=== PATIENT | male | born 1980 | race Caucasian/White ===

== ENCOUNTER 2023-12-05 13:34 | Emergency (ER) | payer SELFPAY ==
--- NOTE | 2023-12-05 13:35 | ECG_ITS ---
[facility] Test Date: 2023-12-05 Pat Name: Jeffy Iraheta Department: Room: Gender: Male Cash Clerk: : 1980 Requested By: Aletha Whitney Order Number: [id number] Moraima MD: Charlie Ramires M.D. Measurements Intervals [place] Rate: 61 P: 82 DE: 147 QRS: 53 QRSD: 121 T: 102 QT: 356 QTc: 360 Interpretive Statements SINUS RHYTHM POSSIBLE RIGHT VENTRICULAR CONDUCTION DELAY [RSR (QR) IN V1/V2] Compared to ECG 05/13/2017 10:14:39 Myocardial infarct finding no longer present Electronically Signed On 12-05-2023 18:03:35 TAR DISTRIBUTOR OPERATOR by Charlie Ramires M.D. [id number]
[2023-12-05 13:41] VITALS: BP 123/85; PULSE 66; RESP 16; TEMP 36.4; O2SAT 98; BMI 32.9
--- NOTE | 2023-12-05 13:48 | XRR_ITS ---
PROCEDURE INFORMATION: Exam: XR Chest Exam date and time: 12/05/2023 2:25 PM Age: 43 years old Clinical indication: Pain; Chest pressure; Additional info: Chest pain TECHNIQUE: Imaging protocol: Radiologic exam of the chest. Views: 1 view. COMPARISON: CR XR chest 1V [id number] 05/13/2017 10:09 AM FINDINGS: Lungs: Unchanged hyperinflation/COPD. No consolidation. Unchanged calcified granuloma mid left lung. Pulmonary vascularity is within normal limits. Pleural spaces: Unremarkable. No pleural effusion. No pneumothorax. Heart/Mediastinum: Unremarkable. No cardiomegaly. Bones/joints: No acute abnormality. XR/XR chest 1V portable [id number] IMPRESSION: No acute findings.
--- NOTE | 2023-12-05 13:48 | W.ED.CHESTPA ---
HPI - Chest Pain General: Chief Complaint: Chest Pain Stated Complaint: chest pain Time Seen by Provider: 12/05/23 13:48 Source: patient Mode of arrival: ambulatory Limitations: no limitations History of Present Illness: Patient is a very nice 43-year-old male who presents to ED today after he was referred here by Dr. Reis at the walk-in clinic for further evaluation of chest pain. Patient tells me over the past 1.5 weeks he has had intermittent episodes of left-sided chest pains. He describes them as sharp and usually only lasting a few seconds before subsiding on their own. He states the longest episode lasted a few minutes. He will usually get about 10 or so a day. There is no worsening or alleviating factors to his discomfort. He has absolutely no other symptoms. It is not affected by exertion or position. He has no complaints of shortness of breath or difficulty breathing. Patient admittedly does not have a primary care doctor and does not receive routine medical care. He reports a family history of cardiac disease. MD complaint: chest pain Onset (ago): day(s) (about 10 days or so) Timing of current episode: episodic Onset: during rest Pain location: left chest Pain radiation: none Severity: moderate Quality: aching and sharp Relieving factors: nothing Exacerbating factors: nothing Associated symptoms: Deny abdominal pain, dyspnea, fever(s), nausea, palpitations, syncope or vomiting Treatment prior to arrival: none Risk Factors: Thoracic aortic dissection risk factors: none Review of Systems Const: Denies: fever(s), chills, body aches, fatigue or malaise Eyes: Denies: change in vision or blurry vision Card: Reports: chest pain; Denies: palpitations, irregular heart rhythm, edema, swelling of feet/ankles, lightheadedness, syncope, pre-syncope, dyspnea on exertion, orthopnea, leg pain with exertion or acrocyanosis Resp: Denies: dyspnea, productive cough, non-productive cough, wheezing, pain on inspiration, hemoptysis or chest congestion GI: Denies: abdominal pain, nausea, vomiting, heartburn or diarrhea : Denies: flank pain, difficulty urinating or dysuria Musc: Denies: neck pain, back pain, extremity pain, extremity swelling or joint pain Skin/Breast: Denies: rash Neuro: Denies: headache(s), numbness in extremities, weakness in extremities, sensory changes or dizziness Physical Exam Const: COMMON NORMALS: no acute distress, patient oriented x3, no limitations, alert and well nourished GENERAL APPEARANCE: cooperative ORIENTATION/CONSCIOUSNESS: Yes awake, Yes oriented to person, Yes oriented to place and Yes oriented to time HENMT: COMMON NORMALS: normocephalic and atraumatic HEAD & SCALP: normal to inspection, normocephalic and atraumatic Neck/C-Spine: COMMON NORMALS: full ROM, no lymphadenopathy, supple, no meningeal signs and no JVD Chest: COMMONS NORMALS: normal inspection of the chest and normal palpation of entire chest wall Resp: COMMON NORMALS: normal respiratory effort and clear to auscultation bilaterally AUSCULTATION: clear to auscultation bilaterally Cardio: COMMON NORMALS: no JVD, regular rate and regular rhythm RATE: regular rate RHYTHM: regular rhythm GI: COMMON NORMALS: Normal to inspection, nondistended, normoactive bowel sounds present, Soft to palpation, non-tender, No hepatosplenomegaly present and no masses PALPATION: Yes Soft to palpation and Yes No hepatosplenomegaly present Back/Pelvis: COMMON NORMALS: thoracic and lumbar spine normal to inspection Extremity: COMMON NORMALS: normal to inspection, no clubbing, cyanosis or edema, no calf tenderness and no pedal edema GENERAL: Yes normal exam except as noted Neuro: COMMON NORMALS: patient oriented x3, moves all extremities, no focal motor deficits, no sensory deficits noted and gait normal SENSORIUM/ORIENTATION: Yes alert, Yes oriented to person, Yes oriented to place and Yes oriented to time MENINGEAL SIGNS: Yes no meningeal signs Skin: COMMON NORMALS: no rashes or lesions noted GENERAL SKIN EXAM: no rashes or lesions noted Course Vital Signs: Vital signs: Vital Signs Temperature 97.6 F 12/05/23 13:41 Pulse Rate 72 12/05/23 14:00 Respiratory Rate 16 12/05/23 13:41 Blood Pressure 136/87 12/05/23 14:00 Pulse Oximetry 97 12/05/23 14:00 Oxygen Delivery Me thod Room Air 12/05/23 14:00 MDM - Chest Pain Medical Decision Making Patient is a 43-year-old male who presents to the ED today with a complaint of brief/few second episodes of L sided chest pains over the past 10 days. They are not affected by exertion. He has no shortness of breath or difficulty breathing. No diaphoresis. He arrives in no acute distress with stable vital signs. Blood work including baseline troponin and EKG are unremarkable. CXR is unremarkable. Will get patient set up with primary care provider for further evaluation and further testing such as an outpatient stress test if indicated. Return to ED precautions given. Medical Records I reviewed the patient's medical records. Lab Data I reviewed the patient's lab results. 12/05/23 14:09 12/05/23 14:09 Radiology Impressions Chest X-Ray 12/05/23 13:48 IMPRESSION: No acute findings. Laboratory Results WBC 7.08 10^3/uL (3.29-11.43) 12/05/23 14:09 RBC 5.55 10^6/uL (3.85-5.65) 12/05/23 14:09 Hgb 16.50 g/dL (11.27-16.99) 12/05/23 14:09 Hct 48.4 % (37-53) 12/05/23 14:09 MCV 87.2 fl (82-101) 12/05/23 14:09 MCH 29.7 pg (27-33) 12/05/23 14:09 MCHC 34.1 g/dL (30-55) 12/05/23 14:09 RDW 13.1 % (12.1-15.1) 12/05/23 14:09 Plt Count 212 10^3/cmm (157-399) 12/05/23 14:09 MPV 9.4 fL (7.4-10.4) 12/05/23 14:09 Neut % (Auto) 56.3 % 12/05/23 14:09 Lymph % (Auto) 31.1 % 12/05/23 14:09 [place] % (Auto) 7.8 % 12/05/23 14:09 Eos % (Auto) 3.7 % 12/05/23 14:09 Baso % (Auto) 0.7 % 12/05/23 14:09 Neut # (Auto) 3.99 10^3/uL (1.8-7.7) 12/05/23 14:09 Lymph # (Auto) 2.2 10^3/uL (0.8-4.8) 12/05/23 14:09 [place] # (Auto) 0.6 10^3/uL (0.2-0.9) 12/05/23 14:09 Eos # (Auto) 0.3 10^3/uL (0.0-0.8) 12/05/23 14:09 Baso # (Auto) 0.1 10^3/uL (0.0-0.1) 12/05/23 14:09 Nucleated RBC % (auto) 0 % 12/05/23 14:09 Nucleated RBCs # 0.0 /100WBC 12/05/23 14:09 Sodium 138 mmol/L (136-145) 12/05/23 14:09 Potassium 4.1 mmol/L (3.5-5.1) 12/05/23 14:09 Chloride 100 mmol/L (98-107) 12/05/23 14:09 Carbon Dioxide 27 mmol/L (22-29) 12/05/23 14:09 Anion Gap 15.1 (5-19) 12/05/23 14:09 BUN 12 mg/dL (6-20) 12/05/23 14:09 Creatinine 0.9 mg/dL (0.7-1.2) 12/05/23 14:09 GFR Calculation 91.3 mL/min (90-130) 12/05/23 14:09 Glucose 109 mg/dL (65-115) 12/05/23 14:09 Calculated Osmolality 286 mOsm/kg (285-295) 12/05/23 14:09 Calcium 8.9 mg/dL (8.5-10.5) 12/05/23 14:09 Total Bilirubin 0.4 mg/dL (0.15-1.2) 12/05/23 14:09 AST 18 U/L (0-40) 12/05/23 14:09 ALT 25 U/L (0-41) 12/05/23 14:09 Alkaline Phosphatase 58 U/L (40-130) 12/05/23 14:09 Troponin T Baseline < 6 ng/L (0-15) 12/05/23 14:09 Total Protein 7.2 g/dL (6.6-8.7) 12/05/23 14:09 Albumin 4.2 g/dL (3.5-5.2) 12/05/23 14:09 Globulin 3.0 g/dL (1.3-4.6) 12/05/23 14:09 All radiology interpretation(s) finalized by discharge Discharge Plan Discharge Patient Disposition: Home Clinical Impression: Atypical chest pain Condition: Stable Prescriptions: No Action Aspir-Low 81 mg Tablet,Delayed Release (Dr/Ec) 81 mg PO DAILY Discharge Orders: Discharge ED (Routine); Ordered 12/05/23 Ordered By: Aletha Whitney Referrals: Charles Montgomery FNP [Family Provider] - Patient Instructions: Chest Pain (DC) Activity Restrictions/Additional Instructions: As we discussed your workup here in the emergency department including a chest x-ray, EKGs, blood work including cardiac enzymes/troponins are all unremarkable. I will place a case management referral to get you set up with a primary care provider for further evaluation. Coding Level of Care Code ED Laser Beam Cutter for Rina Bright
[2023-12-05 14:00] VITALS: BP 136/87; PULSE 72; O2SAT 97
[2023-12-05 14:20] LABS: Basophils # 0.1 10^3/uL (0.0-0.1); Basophils % 0.7 %; Eosinophils # 0.3 10^3/uL (0.0-0.8); Eosinophils % 3.7 %; Hematocrit 48.4 % (37-53); Lymphocytes # 2.2 10^3/uL (0.8-4.8); Lymphocytes % 31.1 %; Mean Corpuscular HGB Conc 34.1 g/dL (30-55); Mean Corpuscular Hemoglobin 29.7 pg (27-33); Mean Corpuscular Volume 87.2 fl (82-101); Mean Platelet Volume 9.4 fL (7.4-10.4); Monocytes # 0.6 10^3/uL (0.2-0.9); Monocytes % 7.8 %; Neutrophils # 3.99 10^3/uL (1.8-7.7); Neutrophils % 56.3 %; Nucleated Red Blood Cells % 0 %; Platelet Count 212 10^3/cmm (157-399); Red Blood Count 5.55 10^6/uL (3.85-5.65); Red Cell Distribution Width 13.1 % (12.1-15.1); White Blood Count 7.08 10^3/uL (3.29-11.43)
[2023-12-05 14:30] VITALS: BP 133/82; PULSE 65; O2SAT 96
[2023-12-05 14:36] LABS: Alanine Aminotransferase 25 U/L (0-41); Albumin Level 4.2 g/dL (3.5-5.2); Alkaline Phosphatase 58 U/L (40-130); Anion Gap 15.1 (5-19); Aspartate Amino Transferase 18 U/L (0-40); Blood Urea Nitrogen 12 mg/dL (6-20); Calcium 8.9 mg/dL (8.5-10.5); Carbon Dioxide 27 mmol/L (22-29); Chloride 100 mmol/L (98-107); Glomerular Filtration Rate 91.3 mL/min (90-130); Glucose 109 mg/dL (65-115); Osmolality Calculated 286 mOsm/kg (285-295); Potassium 4.1 mmol/L (3.5-5.1); Sodium 138 mmol/L (136-145); Total Bilirubin 0.4 mg/dL (0.15-1.2); Total Protein 7.2 g/dL (6.6-8.7); Troponin(5th) Baseline < 6 ng/L (0-15)
[2023-12-05 15:00] VITALS: BP 137/84; PULSE 62; O2SAT 97
[2023-12-05 15:20] VITALS: BP 132/85; PULSE 70; O2SAT 97
--- NOTE | 2023-12-06 10:59 | DCPLANNER ---
Patient has a PCP.
== END 2023-12-05 15:21 | disposition home or self-care (01) ==
PROVIDERS: Emergency Provider Physician Assistant; Family Provider Nurse Practitioner Family
DX: R07.89 Other chest pain (principal); Z79.82 Long term (current) use of aspirin
CPT/HCPCS: 71045; 80053; 84484; 85025; 93005; 99285

== ENCOUNTER 2025-07-05 20:50 | Emergency (ER) | payer SELFPAY ==
[2025-07-05 20:55] VITALS: BP 154/86; PULSE 64; TEMP 36.4; O2SAT 99
--- NOTE | 2025-07-05 21:09 | CTR_ITS ---
PROCEDURE INFORMATION: Exam: CT Abdomen And Pelvis With Contrast Exam date and time: 07/05/2025 9:30 PM Age: 45 years old Clinical indication: Abdominal pain; Additional info: Abd pain, n/v TECHNIQUE: Imaging protocol: Computed tomography of the abdomen and pelvis with contrast. Radiation optimization: All CT scans at this facility use at least one of these dose optimization techniques: automated exposure control; mA and/or kV adjustment per patient size (includes targeted exams where dose is matched to clinical indication); or iterative reconstruction. Contrast material: [id number]; Contrast volume: 100 ml; Contrast route: INTRAVENOUS (IV); COMPARISON: CR XR chest 1V portable [id number] 12/05/2023 2:25 PM RADIATION DOSE METRICS: Total DLP (mGy-cm): 1062.13 FINDINGS: Liver: Normal. No mass. Gallbladder and biliary ducts: The gallbladder is surgically absent. Pancreas: Normal. No ductal dilation. Spleen: A splenule is present. The spleen is otherwise normal. Adrenal glands: Normal. No mass. Kidneys and ureters: A 4 mm obstructive stone is seen at the right ureterovesical junction (UVJ). Mild right hydronephrosis is present. Mild right hydroureter is present. Stomach and bowel: Unremarkable. No obstruction. No mucosal thickening. Appendix: The appendix is normal. Intraperitoneal space: Unremarkable. No free air. No significant fluid collection. Vasculature: Unremarkable. No abdominal aortic aneurysm. Lymph nodes: Unremarkable. No enlarged lymph nodes. Urinary bladder: Unremarkable as visualized. Reproductive: Unremarkable as visualized. Bones/joints: Degenerative joint and disc disease is seen in the imaged spine. Soft tissues: Unremarkable. CT/CT abdomen pelvis w con* [id number] IMPRESSION: 1. Obstructing 4 mm stone at the right ureterovesical junction (UVJ). 2. Mild right hydronephrosis. 3. Mild right hydroureter.
--- NOTE | 2025-07-05 21:11 | W.ED.ABDPA2 ---
HPI - Abdominal Pain General: Chief Complaint: Abdominal Pain Stated Complaint: SOB severe pain into abd into back chills Time Seen by Provider: 07/05/25 21:01 History of Present Illness: 45 yo M with no known PMHx per triage presents with sudden onset lower abdominal pain that began after dinner today following time spent floating. Pain localized to the right lower quadrant per provider?s comment. Associated N/V and SOB. In triage he was restless and trembling, moaning in pain. He reports the pain is severe. Prior ED visits for atypical chest pain over the last 3 years noted. No clear exacerbating or relieving factors mentioned during intake. ROS otherwise not detailed. Related Data Home Medications ?Medication ?Instructions ?Recorded ?Confirmed aspirin 81 mg tablet,delayed 81 mg PO DAILY 12/05/23 12/05/23 release Previous Rx's ?Medication ?Instructions ?Recorded ketorolac 10 mg tablet 10 mg PO Q8H PRN pain 1 day #20 07/05/25 tabs ondansetron 4 mg disintegrating 4 mg PO Q8H 4 days #12 tabs 07/05/25 tablet oxycodone-acetaminophen 5 mg-325 1 tab PO Q8H PRN pain #14 tabs 07/05/25 mg tablet (Percocet) Allergies Allergy/AdvReac Type Severity Reaction Status Date / Time Penicillins Allergy Mild rash Verified 07/05/25 21:00 Physical Exam Narrative: EXAM NARRATIVE: Gen: Moderate distress due to pain. Abdomen: Soft; pain not reproducible to palpation; no clear focal RLQ rebound reported. Const: COMMON NORMALS: patient oriented x3 and alert HENMT: COMMON NORMALS: normocephalic and atraumatic HEAD & SCALP: normocephalic and atraumatic Eye: COMMON NORMALS: Equal, round and reactive pupils present, EOMs intact bilaterally and no scleral icterus PUPIL: Yes Equal, round and reactive pupils present Resp: COMMON NORMALS: normal respiratory effort and No retractions Cardio: COMMON NORMALS: regular rate, regular rhythm and No murmurs present (Cardio) RATE: regular rate RHYTHM: regular rhythm Neuro: COMMON NORMALS: patient oriented x3 SENSORIUM/ORIENTATION: Yes alert Skin: COMMON NORMALS: no rashes or lesions noted GENERAL SKIN EXAM: no rashes or lesions noted Course Vital Signs: Vital signs: Vital Signs Temperature 97.6 F 07/05/25 20:55 Pulse Rate 58 L 07/06/25 00:19 Respiratory Rate 24 H 07/05/25 21:20 Blood Pressure 154/86 07/05/25 20:55 Pulse Oximetry 98 07/06/25 00:19 Oxygen Delivery Me thod Room Air 07/05/25 20:55 MDM - Abdominal Pain Medical Decision Making 45 yo M with sudden-onset lower abdominal pain after dinner with N/V and reported SOB; severe, causing restlessness and tremors. Prior ED visits for atypical chest pain noted; no other PMHx provided. BP 154/86, HR 64, T 97.6, SpO2 99% RA. Abdomen soft, pain not reproducible with palpation; no focal peritoneal signs documented. DDx: Ureteral stone favored given rapid onset severe colicky pain and non-reproducibility on exam. Appendicitis considered but less likely by provider due to rapid onset and exam features. Pain much better with morphine and Toradol. Nausea better with Zofran. CT scan does show right 4 mm distal ureteral stone which I informed him would likely pass spontaneously with time. He will be given a short course of Percocet, Toradol tablets, and Zofran with follow-up to urology if it is not passed by Wednesday. Patient is agreeable to the plan EKG: Time?2102?sinus rhythm with significant baseline artifact but P waves clearly visible in leads V4 and V5. Rate of 61, no ST segment elevation or depression, no T wave inversions, QTc = 408 Lab Data 07/05/25 21:27 07/05/25 21:27 Labs/Radiology: Radiology Impressions Abdomen/Pelvis CT 07/05/25 21:09 IMPRESSION: 1. Obstructing 4 mm stone at the right ureterovesical junction (UVJ). 2. Mild right hydronephrosis. 3. Mild right hydroureter. Laboratory Results WBC 13.78 10^3/uL (3.29-11.43) H 07/05/25 21:27 RBC 5.20 10^6/uL (3.85-5.65) 07/05/25 21: Hgb 15.10 g/dL (11.27-16.99) 07/05/25 21: Hct 45.2 % (37-53) 07/05/25 21: MCV 86.9 fl (82-101) 07/05/25 21: MCH 29.0 pg (27-33) 07/05/25 21: MCHC 33.4 g/dL (30-55) 07/05/25 21: RDW 13.6 % (12.1-15.1) 07/05/25 21: Plt Count 246 10^3/cmm (157-399) 07/05/25 21: MPV 9.3 fL (7.4-10.4) 07/05/25 21: Neut % (Auto) 64.6 % 07/05/25: Lymph % (Auto) 24.3 % 07/05/25: [place] % (Auto) 8.1 % 07/05/25: Eos % (Auto) 1.9 % 07/05/25: Baso % (Auto) 0.4 % 07/05/25: Neut # (Auto) 8.91 10^3/uL (1.8-7.7) H 07/05/25: Lymph # (Auto) 3.4 10^3/uL (0.8-4.8) 07/05/25: [place] # (Auto) 1.1 10^3/uL (0.2-0.9) H 07/05/25: Eos # (Auto) 0.3 10^3/uL (0.0-0.8) 07/05/25: Baso # (Auto) 0.1 10^3/uL (0.0-0.1) 07/05/25: Nucleated RBC % (auto) 0 % 07/05/25: Nucleated RBCs # 0.0 /100WBC 07/05/25 21: Sodium 140 mmol/L (136-145) 07/05/25: Potassium 4.2 mmol/L (3.5-5.1) 07/05/25: Chloride 100 mmol/L (98-107) 07/05/25 21: Carbon Dioxide 24 mmol/L (22-29) 07/05/25: Anion Gap 20.2 (5-19) H 07/05/25: BUN 12 mg/dL (6-20) 07/05/25 21:27 Creatinine 1.1 mg/dL (0.7-1.2) 07/05/25 21:27 GFR Calculation 71.8 mL/min (90-130) L 07/05/25 21: Glucose 162 mg/dL (65-115) H 07/05/25 21:27 Calculated Osmolality 293 mOsm/kg (285-295) 07/05/25 21: Calcium 9.3 mg/dL (8.5-10.5) 07/05/25 21: Total Bilirubin 0.6 mg/dL (0.15-1.2) 07/05/25 21: AST 34 U/L (0-40) 07/05/25 21: ALT 46 U/L (0-41) H 07/05/25 21: Alkaline Phosphatase 65 U/L (40-130) 07/05/25 21: Total Protein 7.6 g/dL (6.6-8.7) 07/05/25 21: Albumin 4.1 g/dL (3.5-5.2) 07/05/25 21: Globulin 3.5 g/dL (1.3-4.6) 07/05/25 21: Lipase 39 U/L (13-60) 07/05/25 21:27 All radiology interpretation(s) finalized by discharge Discharge Plan Discharge Patient Disposition: Home Clinical Impression: Calculus of distal right ureter Condition: Stable Prescriptions: New oxycodone-acetaminophen [Percocet] 5-325 mg tablet 1 tab PO Q8H PRN (Reason: pain) Qty: 14 0RF ketorolac 10 mg tablet 10 mg PO Q8H PRN (Reason: pain) 1 Days Qty: 20 0RF ondansetron 4 mg tablet,disintegrating 4 mg PO Q8H 4 Days Qty: 12 0RF No Action Aspir-Low 81 mg Tablet,Delayed Release (Dr/Ec) 81 mg PO DAILY Discharge Orders: Discharge ED (Routine); Ordered 07/05/25 Ordered By: Audie Hess Referrals: [facility] [Outside] Referral Note: 4mm distal stone, recommended follow up if not passed spontaneously over the weekend Clinical Impression: Calculus of distal right ureter Discharge Diet: Advance as tolerated Discharge Activity: Increase activity as tolerated Patient Instructions: Kidney Stones (ED), Patient Portal & Marco Instructions Activity Restrictions/Additional Instructions: As we discussed, you have a 4 mm kidney stone at the very bottom of the ureter which connects the kidney to the bladder. Once the stone drops into the bladder, your pain should resolve. 80% of the time, stones of this size will pass spontaneously. If you still have pain on Wednesday, please call the urologist listed on this paperwork or any urologist you would care to see for definitive management as there is a chance the stone will not pass without surgical intervention. Stand Alone Forms: Work/School Release Print Language: Croatian Coding Level of Care Code ED Cash Register Mechanic for Rina Bright
[2025-07-05 21:20] VITALS: RESP 24
[2025-07-05] MEDS: morphine 4 mg/mL SDV 1 mL 8 MG IVP (21:20)
[2025-07-05] MEDS: ondansetron 2 mg/ML SDV 2 mL 4 MG IVP (21:21)
[2025-07-05 21:32] LABS: Hematocrit 45.2 % (37-53); Hemoglobin 15.10 g/dL (11.27-16.99); Mean Corpuscular HGB Conc 33.4 g/dL (30-55); Mean Corpuscular Hemoglobin 29.0 pg (27-33); Mean Corpuscular Volume 86.9 fl (82-101); Nucleated Red Blood Cells % 0 %; Platelet Count 246 10^3/cmm (157-399); Red Blood Count 5.20 10^6/uL (3.85-5.65); White Blood Count 13.78 10^3/uL (3.29-11.43)
[2025-07-05] MEDS: iohexol 350 mg/mL 500 mL Btl (per mL) IV (21:35)
[2025-07-05 21:52] LABS: Alanine Aminotransferase 46 U/L (0-41); Albumin Level 4.1 g/dL (3.5-5.2); Alkaline Phosphatase 65 U/L (40-130); Anion Gap 20.2 (5-19); Aspartate Amino Transferase 34 U/L (0-40); Blood Urea Nitrogen 12 mg/dL (6-20); Calcium 9.3 mg/dL (8.5-10.5); Carbon Dioxide 24 mmol/L (22-29); Chloride 100 mmol/L (98-107); Creatinine Clr Calc Pharmacy 102.0088; Globulin 3.5 g/dL (1.3-4.6); Glucose 162 mg/dL (65-115); Lipase 39 U/L (13-60); Osmolality Calculated 293 mOsm/kg (285-295); Potassium 4.2 mmol/L (3.5-5.1); Sodium 140 mmol/L (136-145); Total Protein 7.6 g/dL (6.6-8.7)
[2025-07-05] MEDS: ondansetron hcl ODT 4 mg Tab PO (22:53)
[2025-07-05] MEDS: oxyCODONE-APAP 5-325 mg Tablet 1 TAB PO (22:55)
[2025-07-06 00:19] VITALS: PULSE 58; O2SAT 98
== END 2025-07-06 00:30 | disposition home or self-care (01) ==
PROVIDERS: Emergency Provider Student in an Organized Health Care Education/Training Program
DX: N20.1 Calculus of ureter (principal)
CPT/HCPCS: 74177; 80053; 83690; 85025; 96374; 96375; 99285; J1885; J2270; J2405; J7030; J9999; Q0162